=== PATIENT | female | born 1935 | race Caucasian/White ===

== ENCOUNTER 2023-08-11 14:44 | Emergency (ER) | payer OTHER, MEDICAID ==
[~2023-08-11] VITALS: Ht 157.5 cm; Wt 55.3 kg
[2023-08-11] MEDS ORDERED: AMLO5TAB4 PO (14:53)
[2023-08-11 15:00] VITALS: BP_SYST 159; PULSE 98; RESP 20; TEMP 98.9; O2SAT 100
[2023-08-11 15:36] LABS: BASOPHILS % (AUTO) 0.3 % (0.0-2.0); EOSINOPHILS % (AUTO) 0.3 % (0.0-4.0); HEMATOCRIT 35.8 % (36-48); HEMOGLOBIN 11.7 g/dL (12.0-16.0); LYMPHOCYTES # (AUTO) 1.7 K/uL (1.0-5.5); LYMPHOCYTES % (AUTO) 44.9 % (20.5-51.5); MEAN CORPUSCULAR HEMOGLOBIN 25 pg (27-31); MEAN CORPUSCULAR HGB CONC 33 % (32-36); MEAN CORPUSCULAR VOLUME 78 fL (79.0-98.0); MONOCYTES # (AUTO) 0.3 K/uL (0.0-1.0); MONOCYTES % (AUTO) 6.8 % (1.7-9.3); NEUTROPHILS # (AUTO) 1.8 K/uL (1.8-7.7); NEUTROPHILS % (AUTO) 47.7 % (40.0-70.0); PLATELET COUNT (AUTO) 241 K/uL (130-430); RED BLOOD CELL COUNT(AUTO) 4.62 MIL/uL (4.2-6.2); RED CELL DISTRIBUTION WIDTH 15.1 % (9.0-15.0); WHITE BLOOD COUNT (AUTO) 3.7 K/uL (4.8-10.8)
[2023-08-11] MEDS ORDERED: amLODIPine BESYLATE 5 MG TABLET PO ONE (15:45)
[2023-08-11 15:49] LABS: ANION GAP 8 (5-15); CALCIUM 8.8 mg/dL (8.4-11.0); CARBON DIOXIDE 25 mmol/L (23-29); CHLORIDE 99 mmol/L (98-107); CREATININE 0.47 mg/dL (0.55-1.30); GLUCOSE 108 mg/dL (74-106); POTASSIUM 3.9 mmol/L (3.5-5.1); SODIUM SERUM 132 mmol/L (136-145); UREA NITROGEN, BLOOD 7 mg/dL (8-21)
[2023-08-11 15:56] LABS: ALANINE AMINOTRANSFERASE 18 U/L (12-78); ALBUMIN 3.8 g/dL (3.4-4.8); ASPARTATE AMINOTRANSFERASE 15 U/L (10-37); TOTAL BILIRUBIN 0.5 mg/dL (0.0-1.0)
[2023-08-11 18:49] VITALS: BP_SYST 151; PULSE 106; RESP 20; TEMP 98.9; O2SAT 100
== END 2023-08-11 16:54 | disposition home or self-care (01) ==
LOC: SED 14:44
DX: I10 Essential (primary) hypertension (principal); R61 Generalized hyperhidrosis; Z79.899 Other long term (current) drug therapy
CPT/HCPCS: 36415; 71045; 80053; 84484; 85025; 93005; 99285